=== PATIENT | female | born 1975 | race Caucasian/White ===

== ENCOUNTER 2017-06-07 12:23 | Day surgery (SDC) | payer BC ==
[~2017-06-07 12:23] MED LIST: Buffered Lidocaine 0.9% SYRIN* 5 ML/SYR SYRINGE INTRADERM ONE; Famotidine IV* 10 MG/ML 2 ML (20 mg) IV ONE; Metoclopramide TAB* 10 MG PO ONE
[2017-06-07] MEDS ORDERED: Buffered Lidocaine 0.9% SYRIN* 5 ML/SYR SYRINGE ONE (13:09)
[2017-06-07] MEDS ORDERED: Famotidine IV* 10 MG/ML 2 ML (20 mg) ONE (13:09)
[2017-06-07] MEDS ORDERED: Metoclopramide TAB* 10 MG ONE (13:09)
[2017-06-07] MEDS ORDERED: Dexamethasone IV* 4 MG/ML 1 ML (4 MG) ONE (14:16)
[2017-06-07] MEDS ORDERED: fentaNYL* 50 MCG/ML 2 ML VIAL (100 MCG VIAL) ONE ×2 (14:16→15:54)
[2017-06-07] MEDS ORDERED: Propofol* 10 MG/ML 20 ML BTL IV PUSH ONE (14:16)
[2017-06-07] MEDS ORDERED: Midazolam* 1 MG/ML 5 ML VIAL (5 MG) ONE (14:16)
[2017-06-07] MEDS ORDERED: Lidocaine 2% PF * 5 ML VIAL ONE (14:16)
[2017-06-07] MEDS ORDERED: Ondansetron INJ* 2 MG/ML VIAL ONE (14:16)
[2017-06-07] MEDS ORDERED: Ondansetron INJ* 2 MG/ML VIAL IV PRN (16:18)
[2017-06-07] MEDS ORDERED: fentaNYL* 50 MCG/ML 2 ML VIAL (100 MCG VIAL) IV PRN (16:18)
[2017-06-07] MEDS ORDERED: HYDROcodone/ACET. 7.5/325 LIQ* 15 ML UDC ONE (16:20)
[2017-06-07 17:47] VITALS: BP 124/72
--- NOTE | 2017-06-08 10:15 | OP ---
DATE OF OPERATION: 06/07/17 - [facility] DATE OF : 77 SURGEON: Scott Hillman MD. ANESTHESIOLOGIST: Edwin Saenz MD ANESTHESIA: General PRE-OP DIAGNOSIS: Right hypertrophied tonsil with firmness, suspicion with smoking history of neoplasm. POST-OP DIAGNOSIS: Right hypertrophied tonsil with firmness, suspicion with smoking history of neoplasm. OPERATIVE PROCEDURE: Tonsillectomy. BRIEF HISTORY: This 42-year-old female presented with unilateral swelling and pain of the right tonsil, significant asymmetrical swelling and palpable tenderness in spite of a course of antibiotics with no resolution of discomfort and swelling. Because of the smoking history, I elected that we should do a biopsy of the tonsil. DESCRIPTION OF PROCEDURE: The patient was taken to the operating room, general anesthetic was given, patient was intubated. The tongue, mandible, soft palate were retracted. Bipolar dissection of the right tonsil was carried. Once hemostasis was obtained, the patient was awakened and sent to Recovery room in stable condition. Tonsil was sent fresh for possible lymphoma versus squamous cell carcinoma versus benign. [id number] #: [id number] MTDD
== END 2017-06-07 18:05 | disposition home or self-care (01) ==
LOC: OR 12:23
PROVIDERS: ATTEND Otolaryngology
DX: J35.1 Hypertrophy of tonsils (principal); F17.210 Nicotine dependence, cigarettes, uncomplicated; R49.0 Dysphonia; J31.0 Chronic rhinitis
CPT/HCPCS: 88184; 88188; 88304; A9270-GY; J1100; J2250; J2405; J2704; J3010